=== PATIENT | male | born 1965 | race Caucasian/White ===

== ENCOUNTER → 2024-02-08 10:54 | Outpatient (BNVA) | payer OTHER, SELFPAY | PROVIDERS: PCP Family Medicine; Visit Provider Orthopaedic Surgery | DX: M47.22 Other spondylosis with radiculopathy, cervical region (principal); M54.2 Cervicalgia; G89.29 Other chronic pain | CPT/HCPCS: 72050 ==

== ENCOUNTER 2024-03-29 08:30 | Outpatient (CLI) | payer OTHER, SELFPAY ==
--- NOTE | 2024-03-29 08:45 | MR_ITS ---
WS: [id number] MRI CERVICAL SPINE NONCONTRAST TECHNIQUE: Sagittal T1, T2 and STIR imaging. Axial T2, gradient, and fiesta imaging. CLINICAL INFORMATION: neck pain COMPARISON: None. FINDINGS: Straightening with slight reversal of normal cervical lordosis. Mild disc osteophyte complexes in the mid cervical spine. C2-C3: Mild facet arthropathy. Mild RIGHT and no significant LEFT foraminal narrowing. C3-C4: Shallow central disc osteophyte protrusion with slight contact of the cervical cord. Mild cent ral canal stenosis. Moderate facet arthropathy. Moderate LEFT and mild RIGHT bony foraminal narrowing . C4-C5: Disc osteophyte complex with mild central canal stenosis. Severe bilateral bony foraminal narr owing. C5-C6: Disc osteophyte complex with slight indentation the LEFT middle cervical cord. Mild to moderat e central canal stenosis. Moderate to severe LEFT and mild to moderate RIGHT bony foraminal narrowing . Moderate facet arthropathy. C6-C7: Shallow central disc protrusion. Spinal canal is patent. Mild LEFT greater than RIGHT bony for aminal narrowing. Moderate facet arthropathy. C7-T1: Mild LEFT and no significant RIGHT foraminal narrowing. Spinal canal is patent. Visualized brain stem structures: Normal. Prevertebral soft tissues: Normal. MR/MR cervical spin wo con* [id number] IMPRESSION: 1. Straightening with slight reversal of the normal cervical lordosis. 2. Mild to moderate central canal stenosis C3-C4 C4-C5 and C5-C6 with slight i ndentation of the cervical cord worse at C5-C6. 3. Moderate to severe bony foraminal narrowing worse at LEFT C3-C4, bilateral C4-5, and LEFT C5-C6.
== END 2024-03-29 08:31 | disposition home or self-care (01) ==
LOC: RAD 08:32
PROVIDERS: PCP Family Medicine; Visit Provider Orthopaedic Surgery
DX: M47.892 Other spondylosis, cervical region (principal); M99.61 Osseous and subluxation stenosis of intervertebral foramina of cervical region; M25.78 Osteophyte, vertebrae
CPT/HCPCS: 72141

== ENCOUNTER → 2024-04-12 11:57 | Outpatient (BNVA) | payer BC, SELFPAY | PROVIDERS: PCP Family Medicine; Visit Provider Family Medicine | DX: D75.1 Secondary polycythemia (principal) | CPT/HCPCS: 80053; 80061; 83036; 84439; 84443; 85025 ==

== ENCOUNTER → 2024-04-13 15:50 | Outpatient (BNVA) | payer BC, SELFPAY | PROVIDERS: PCP Family Medicine; Visit Provider Family Medicine | DX: D75.1 Secondary polycythemia (principal) | CPT/HCPCS: 85025 ==

== ENCOUNTER 2024-04-15 16:11 | Outpatient (CLI) | payer BC, SELFPAY ==
[2024-04-15 16:28] LABS: Basophils # 0.1 10^3/uL (0.0-0.1); Basophils % 1.2 %; Eosinophils # 0.4 10^3/uL (0.0-0.8); Eosinophils % 4.6 %; Hematocrit 45.2 % (37-53); Lymphocytes # 3.6 10^3/uL (0.8-4.8); Lymphocytes % 44.4 %; Mean Corpuscular HGB Conc 35.4 g/dL (30-55); Mean Corpuscular Hemoglobin 31.7 pg (27-33); Mean Corpuscular Volume 89.5 fl (82-101); Mean Platelet Volume 10.9 fL (7.4-10.4); Monocytes # 0.5 10^3/uL (0.2-0.9); Monocytes % 6.2 %; Neutrophils # 3.54 10^3/uL (1.8-7.7); Neutrophils % 43.2 %; Nucleated Red Blood Cells % 0 %; Platelet Count 162 10^3/cmm (157-399); Red Blood Count 5.05 10^6/uL (3.85-5.65); Red Cell Distribution Width 12.8 % (12.1-15.1)
== END 2024-04-15 16:12 | disposition home or self-care (01) ==
LOC: LAB 16:12
PROVIDERS: PCP Family Medicine; Visit Provider Family Medicine
DX: D75.1 Secondary polycythemia (principal)
CPT/HCPCS: 85025